=== PATIENT | female | born 1990 | race African-American/Black ===

== ENCOUNTER 2017-12-17 11:03 | Emergency (ER) | payer OTHER ==
[~2017-12-17] VITALS: Ht 172.7 cm; Wt 90.0 kg
[2017-12-17 11:09] VITALS: BP 136/82; PULSE 111; RESP 16; TEMP 97.9; O2SAT 100
[2017-12-17] MEDS ORDERED: CYCL10TA PO (11:16)
[2017-12-17] MEDS ORDERED: PERC5TAB12 PO (11:16)
[2017-12-17] MEDS ORDERED: MEDR4PAK PO (12:23)
[2017-12-17] MEDS ORDERED: ROBA750T PO (12:23)
--- NOTE | 2017-12-17 12:24 | PD ---
HPI Chief Complaint: Musculoskeletal Complaint Time Seen by Provider: 12:09 Travel History International Travel<30 days: No Contact w/Intl Traveler<30days: No Traveled to known affect area: No History of Present Illness HPI This is a 27-year-old female here with sciatica pain. Patient has a history of sciatica and chronic back pain. She denies fever, chills, incontinence, saddle anesthesia, paresthesia or weakness of the extremity. She reports the pain is located left low back and radiates down the back of the leg all the way to the foot. Severity is moderate. Exacerbated by movement. Unrelieved by Flexeril and Percocet. She has had similar pain like this in the past. PFSH Past Medical History Musculoskeletal: Yes (CHRONIC BACK PAIN) Influenza Vaccination: No ?: Not LMP: 11/26/17 Past Surgical History Neurologic Surgery: Yes (BACK X 2) Social History Alcohol Use: No Tobacco Use: No Substance Use: No Allergies-Medications (Allergen,Severity, Reaction): Coded Allergies: No Known Allergies (Unverified , 12/17/17) Reported Meds & Prescriptions Reported Meds & Active Scripts Active Robaxin (Methocarbamol) 750 Mg Tab 750 Mg PO TID Medrol Dosepak (Methylprednisolone) 4 Mg Dspk 4 Mg PO DIRECTED Per Pharmacist direction Reported Flexeril (Cyclobenzaprine HCl) 10 Mg Tab 10 Mg PO TID Percocet (Oxycodone-Acetaminophen) 5-325 mg Tab 1 Tab PO Q6H PRN Review of Systems Except as stated in HPI: all other systems reviewed are Neg General / Constitutional: No: Fever Physical Exam Narrative GENERAL: Alert and well-appearing 27-year-old female SKIN: Warm and dry. HEAD: Normocephalic. EYES: No injection or drainage. NECK: Supple CARDIOVASCULAR: Regular rate and rhythm RESPIRATORY: Breath sounds equal bilaterally. No accessory muscle use. GASTROINTESTINAL: Abdomen soft, non-tender, nondistended. MUSCULOSKELETAL: No cyanosis, or edema. Normal strength and sensation in lower extremities. 2+ DTRs. Patient is able to flex and extend the great toes. BACK: +TTP OVER L LUMBAR PARASPINOUS MUSCULATURE. Without obvious deformity. No CVA tenderness. Data Data Last Documented VS Vital Signs Date Time Temp Pulse Resp B/P (MAP) Pulse Ox O2 Delivery O2 Flow Rate FiO2 12/17/17 11:09 97.9 111 16 136/82 (100) 100 Orders Orders Ketorolac Inj (Toradol Inj) (12/17/17 12:30) Orphenadrine Inj (Norflex Inj) (12/17/17 12:30) MDM Medical Decision Making Medical Screen Exam Complete: Yes Emergency Medical Condition: Yes Differential Diagnosis Sciatica, lumbar strain, herniated disc Narrative Course This is a 27-year-old female here with sciatica pain. She is well-appearing. Her vital signs are stable. She has a normal neurologic exam. She will be treated for sciatica Diagnosis Primary Impression: Sciatica Qualified Codes: M54.32 - Sciatica, left side Referrals: Primary Care Physician Additional Instructions: Stop Flexeril and start Robaxin Medication as prescribed. Ice and/or heat for comfort. Return if he developed new or worsening symptoms. Scripts Methocarbamol (Robaxin) 750 Mg Tab 750 MG PO TID for Muscle Spasm, #12 TAB 0 Refills Prov: Shahnaz Maynard 12/17/17 Methylprednisolone Dosepak (Medrol Dosepak) 4 Mg Dspk 4 MG PO DIRECTED, #1 DSPK 0 Refills Per Pharmacist direction Prov: Shahnaz Maynard 12/17/17 Disposition: 01 DISCHARGE HOME Condition: Stable Shahnaz Maynard Dec 17, 2017 12:24
[2017-12-17] MEDS ORDERED: ORPHENADRINE INJ 60 MG/2 ML AMP IM ONE (12:30)
[2017-12-17] MEDS ORDERED: KETOROLAC TROMETHAMINE 60 MG/2 ML (IM) VIAL IM ONE (12:30)
[2017-12-18] MEDS ORDERED: ORPH100T PO (23:12)
[2017-12-18] MEDS ORDERED: KETO10 PO (23:12)
== END 2017-12-17 12:47 | disposition home or self-care (01) ==
LOC: PHEFT 11:03
DX: M54.32 Sciatica, left side (principal)
CPT/HCPCS: 96372; 99283; J1885; J2360

== ENCOUNTER 2017-12-18 19:44 | Emergency (ER) | payer OTHER ==
[~2017-12-18 19:44] MED LIST: CYCL10TA PO; MEDR4PAK PO; PERC5TAB12 PO; ROBA750T PO
[2017-12-18 19:45] VITALS: BP 151/78; PULSE 130; RESP 18; TEMP 98.6; O2SAT 100
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
[2017-12-18] MEDS ORDERED: ORPHENADRINE INJ 60 MG/2 ML AMP IM ONE (22:00)
[2017-12-18] MEDS ORDERED: KETOROLAC TROMETHAMINE 60 MG/2 ML (IM) VIAL IM ONE (22:00)
[2017-12-18] MEDS ORDERED: DEXAMETHASONE SOD PHOS 20 MG/5 ML VIAL IM ONE (22:00)
[2017-12-18] MEDS ORDERED: ORPH100T PO (23:12)
[2017-12-18] MEDS ORDERED: KETO10 PO (23:12)
== END 2017-12-18 23:26 | disposition home or self-care (01) ==
LOC: NEPD 19:44
DX: M54.31 Sciatica, right side (principal); M54.32 Sciatica, left side; M62.838 Other muscle spasm
CPT/HCPCS: 96372; 99283; J1100; J1885; J2360

== ENCOUNTER 2017-12-21 11:31 | Emergency (ER) | payer OTHER ==
[~2017-12-21] VITALS: Ht 172.7 cm; Wt 89.4 kg
[~2017-12-21 11:31] MED LIST changes: +KETO10 PO; +ORPH100T PO
[2017-12-21 11:37] VITALS: BP 124/72; PULSE 108; RESP 16; TEMP 98.1; O2SAT 100
[2017-12-21] MEDS ORDERED: TYLETAB34 PO (12:23)
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
== END 2017-12-21 12:36 | disposition home or self-care (01) ==
LOC: PHEFT 11:31
DX: M54.41 Lumbago with sciatica, right side (principal); G89.29 Other chronic pain
CPT/HCPCS: 99283